=== PATIENT | female | born 1975 | race Caucasian/White ===

== ENCOUNTER 2018-04-18 15:19 | Outpatient (CLI) | payer OTHER | END 2018-04-18 15:20 | disposition home or self-care (01) | LOC: BICMAMMO 15:19 | PROVIDERS: ATTEND Obstetrics & Gynecology | DX: Z12.31 Encounter for screening mammogram for malignant neoplasm of breast (principal); Z80.3 Family history of malignant neoplasm of breast | CPT/HCPCS: 77063; 77067 ==

== ENCOUNTER 2021-02-13 17:30 | Outpatient (CLI) | payer OTHER | END 2021-02-13 17:31 | disposition home or self-care (01) | LOC: SLEEPLAB 17:30 | PROVIDERS: ATTEND Family Medicine | DX: G47.33 Obstructive sleep apnea (adult) (pediatric) (principal); R53.83 Other fatigue; R06.83 Snoring; G47.00 Insomnia, unspecified; E11.9 Type 2 diabetes mellitus without complications; F41.9 Anxiety disorder, unspecified; E66.9 Obesity, unspecified; Z68.41 Body mass index [BMI] 40.0-44.9, adult | CPT/HCPCS: 95806 ==

== ENCOUNTER 2021-04-15 19:00 | Outpatient (CLI) | payer OTHER | END 2021-04-15 19:01 | disposition home or self-care (01) | LOC: SLEEPLAB 19:00 | PROVIDERS: ATTEND Family Medicine | DX: G47.33 Obstructive sleep apnea (adult) (pediatric) (principal); R53.83 Other fatigue; R06.83 Snoring; F41.9 Anxiety disorder, unspecified; E11.9 Type 2 diabetes mellitus without complications; G47.10 Hypersomnia, unspecified; E66.9 Obesity, unspecified; Z68.41 Body mass index [BMI] 40.0-44.9, adult | CPT/HCPCS: 95811 ==

== ENCOUNTER 2022-06-08 22:17 | Observation (INO) | payer BC, SELFPAY ==
[2022-06-09 01:43] VITALS: BMI 32.7
[2022-06-09] MEDS ORDERED: Ondansetron PF 4 MG/2 ML Vial IVP PRN (02:03)
[2022-06-09] MEDS ORDERED: Ondansetron ODT 4 MG TAB PO PRN (02:13)
[2022-06-09] MEDS ORDERED: Acetaminophen 650 MG Suppository PR PRN (02:13)
[2022-06-09] MEDS ORDERED: Nitroglycerin 0.4 MG TAB (25 Tab Bottle) SL PRN (02:13)
[2022-06-09] MEDS ORDERED: Acetaminophen 325 MG TAB PO PRN (02:13)
[2022-06-09] MEDS ORDERED: Dextrose 5% in Water 1,000 ML IV PRN (02:49)
[2022-06-09] MEDS ORDERED: HumaLOG 300 UNITS/3 ML VIAL SC PRN ×2 (02:49)
[2022-06-09] MEDS ORDERED: Dextrose 50% Abboject 50 ML SYRINGE SLOW IVP PRN (02:49)
[2022-06-09] MEDS ORDERED: SUMAtriptan Succinate 50 MG TAB PO PRN (02:53)
[2022-06-09 08:35] LABS: #Eosinphils 0.1 thou/uL (0.0-0.7); #Lymphocytes 1.3 thou/uL (1.20-3.40); #Monocytes 0.4 thou/uL (0.11-0.59); #Neutrophils 3.6 thou/uL (1.40-6.50); %Basophils 0.8 % (0.0-1.0); %Lymphocytes 23.6 % (21.0-51.0); %Neutrophils 67.7 % (42.0-75.0); Hemoglobin 13.5 g/dL (12.0-16.0); Mean Corpuscular HGB CONC 33.2 g/dL (32.0-36.0); Mean Corpuscular Volume 87.4 fL (78.0-98.0); Mean Platelet Volume 8.2 fL (7.4-10.4); Platelet Count 242 thou/uL (130-400); RBC Distribution Width 12.9 % (11.5-14.5); Red Blood Cell (RBC) Count 4.65 mill/uL (4.20-5.40); White Blood Cell (WBC) Count 5.4 thou/uL (4.8-10.8)
[2022-06-09 08:43] LABS: Anion Gap 15 mmol/L (10-20); BUN (Urea Nitrogen) 6 mg/dL (7.0-18.7); Calc. Creatinine Clearance 97 mL/min (70-130); Calcium 9.4 mg/dL (7.8-10.44); Carbon Dioxide 27 mmol/L (22-29); Cardiac Risk 3.2 (Less than 4.5); Chloride 102 mmol/L (98-107); Cholesterol 154 mg/dl (< 200 Desired); Estimated GFR 78; Glucose 190 mg/dL (70-105); HDL Cholesterol 48 mg/dL (>60 Neg Risk); LDL Cholesterol, Calculated 80 mg/dL; Potassium 4.8 mmol/L (3.5-5.1); Sodium 139 mmol/L (136-145); Triglycerides 128 mg/dL (Less than 150)
[2022-06-09 08:45] LABS: Troponin I Less than 0.010 ng/mL (< 0.028)
[2022-06-09] MEDS ORDERED: Morphine 4 MG/ML VIAL SLOW IVP SCH (08:45)
[2022-06-09] MEDS ORDERED: Aspirin Chewable 81 MG TAB PO SCH (09:00)
[2022-06-09] MEDS ORDERED: ADENOSINE 60 MG/20 ML VIAL ONE (09:43)
[2022-06-09 17:25] VITALS: BP 114/60; TEMP 98.5
[2022-06-09] MEDS ORDERED: Atorvastatin Calcium 10 MG TAB PO SCH (21:00)
[2022-06-09] MEDS ORDERED: Loratadine 10 MG TAB PO SCH (21:00)
[2022-06-09] MEDS ORDERED: Zolpidem Tartrate 5 MG TAB PO SCH (21:00)
[2022-06-10] MEDS ORDERED: Lisinopril 10 MG TAB PO SCH (09:00)
== END 2022-06-09 18:21 | disposition home or self-care (01) ==
LOC: 2NO 06-09 01:40
PROVIDERS: ADMIT Student in an Organized Health Care Education/Training Program; ATTEND Student in an Organized Health Care Education/Training Program
DX: R07.89 Other chest pain (principal); R06.02 Shortness of breath; E11.9 Type 2 diabetes mellitus without complications; E78.5 Hyperlipidemia, unspecified; I10 Essential (primary) hypertension; G47.00 Insomnia, unspecified; Z79.4 Long term (current) use of insulin; Z79.899 Other long term (current) drug therapy
CPT/HCPCS: 36415; 36416; 78452; 80048; 80061; 84484; 85025; 93017; 94760; 96374; A9500; G0378; J0153; J2405

== ENCOUNTER 2025-08-02 09:48 | Day surgery (SDC) | payer BC ==
[2025-07-30 11:05] VITALS: BMI 32.9
[2025-08-02 10:46] LABS: #Basophils Less than 0.03 10x3/uL (0.0-0.2); #Eosinophils 0.08 10x3/uL (0.0-0.7); #Monocytes 0.38 10x3/uL (0.11-0.59); #Neutrophils 3.88 10x3/uL (1.40-6.50); %Basophils 0.4 % (0.0-1.0); %Eosinophils 1.5 % (0.0-10.0); %Lymphocytes 17.1 % (21.0-51.0); %Monocytes 7.2 % (0.0-10.0); %Neutrophils 73.6 % (42.0-75.0); Hematocrit 34.0 % (36.0-47.0); Hemoglobin 10.7 g/dL (12.0-16.0); Mean Corpuscular Hemoglobin 24.8 pg (27.0-31.0); Mean Corpuscular Volume 78.7 fL (78.0-98.0); Platelet Count 266 10x3/uL (130-400); Red Blood Cell (RBC) Count 4.32 mill/uL (4.20-5.40); White Blood Cell (WBC) Count 5.27 10x3/uL (4.8-10.8)
[2025-08-02 11:04] LABS: Anion Gap 14 mmol/L (10-20); BUN (Urea Nitrogen) 16 mg/dL (9.8-20.1); Calc. Creatinine Clearance 103 mL/min (70-130); Calcium 8.8 mg/dL (7.8-10.44); Carbon Dioxide 27 mmol/L (22-29); Chloride 107 mmol/L (98-107); Glucose 119 mg/dL (70-105); Potassium 4.3 mmol/L (3.5-5.1); Sodium 144 mmol/L (136-145)
[2025-08-02] MEDS ORDERED: Ondansetron PF 4 MG/2 ML Vial ONE (11:24)
[2025-08-02] MEDS ORDERED: Famotidine/PF 20 mg/2ml Vial ONE (11:25)
[2025-08-02] MEDS ORDERED: Lidocaine 1% PF 5 ML VIAL ONE (11:27)
[2025-08-02] MEDS ORDERED: PROPOFOL 20 ML ONE (11:27)
== END 2025-08-02 15:25 | disposition home or self-care (01) ==
LOC: MRI 09:48
PROVIDERS: ATTEND Specialist
DX: M54.16 Radiculopathy, lumbar region (principal); M54.12 Radiculopathy, cervical region; I25.10 Atherosclerotic heart disease of native coronary artery without angina pectoris; E11.9 Type 2 diabetes mellitus without complications; K21.9 Gastro-esophageal reflux disease without esophagitis; G47.33 Obstructive sleep apnea (adult) (pediatric); G43.909 Migraine, unspecified, not intractable, without status migrainosus; Z95.5 Presence of coronary angioplasty implant and graft; Z90.49 Acquired absence of other specified parts of digestive tract; Z88.8 Allergy status to other drugs, medicaments and biological substances; Z79.4 Long term (current) use of insulin
CPT/HCPCS: 72141; 72148; 80048; 85025; 93005; 93010; J2704